=== PATIENT | female | born 1955 | race African-American/Black ===

== ENCOUNTER 2016-04-30 11:43 | Day surgery (SDC) | payer BC ==
[~2016-04-30] VITALS: Ht 185.4 cm; Wt 102.0 kg
[~2016-04-30 11:43] MED LIST: AMOXICILLIN 8751 TAB PO; COUMADIN 5MG5 MG/TAB PO; COUMADIN 6MG6 MG/TAB PO; FOLIC ACID0.8 MG PO; HCTZ 25MG TAB25 MG PO; LEVAQUIN 5500 MG/TA1 PO; LOPRESSOR 225 MG/TAB PO; LOVENOX 3030 MG/0.3 SQ; NEPHROCAP PO; NEURONTIN100 MG/CAP PO; NORCO 325 MG-51 TAB PO; PHENERGAN 25 TA25 MG PO; PREDNISONE20 MG PO; PROVENTIL0.09 MG/A1 IH; TYLENOL 500MG500 MG PO; VITAMIN D 1001000 IU PO; VTAMINC250TA PO
[2016-04-30] MEDS ORDERED: COUMADIN4 MG PO (12:37)
[2016-04-30] MEDS ORDERED: DOXYCYCLINE 10100 MG PO (12:39)
[2016-04-30 12:52] VITALS: BP 112/68; PULSE 84; TEMP 98.1
[2016-04-30 12:58] LABS: INR 2.4 (0.8-3.0); PROTHROMBIN TIME 27.3 SECONDS (9.7-12.8)
[2016-04-30 14:30] VITALS: BP 142/69; PULSE 88; TEMP 98.3
== END 2016-04-30 15:00 | disposition home or self-care (01) ==
LOC: SDCO 11:43
PROVIDERS: Internal Medicine Pulmonary Disease
DX: Z46.89 Encounter for fitting and adjustment of other specified devices (principal); J90 Pleural effusion, not elsewhere classified; R06.02 Shortness of breath; R53.1 Weakness; Z85.118 Personal history of other malignant neoplasm of bronchus and lung; Z85.841 Personal history of malignant neoplasm of brain; Z87.891 Personal history of nicotine dependence; Z92.3 Personal history of irradiation; Z92.29 Personal history of other drug therapy

== ENCOUNTER 2016-06-09 21:48 | Inpatient (IN) | payer BC ==
[~2016-06-09] VITALS: Ht 185.4 cm; Wt 101.6 kg
[~2016-06-09 21:48] MED LIST changes: +COUMADIN4 MG PO; +DOXYCYCLINE 10100 MG PO
[2016-06-10] VITALS (7 sets, daily range): BP systolic 92–130; BP diastolic 52–87; PULSE 107–120; TEMP 98–100.1
[2016-06-10 01:49] LABS: BASO # 0.1 (0.0-0.2); BASO % 0.4 % (0.0-2.0); EOS # 0.1 (0.0-0.7); EOS % 0.7 % (0-4.0); GRAN # 11.8 (1.4-6.5); GRAN % 84.4 % (42.2-75.2); LYMPH # 1.1 (1.2-3.4); LYMPH % 7.9 % (20.0-51.0); MEAN CELL VOLUME 94 fl (80.0-100.0); MEAN CORPUSCULAR HGB CONC 32 g/dl (33.0-37.0); MEAN PLATELET VOLUME 9.5 fl (7.4-10.4); MONO # 0.9 (0.1-0.6); MONO % 6.2 % (1.7-9.3); PLATELET COUNT 225 K/mm3 (130-400); RED BLOOD COUNT 3.83 M/mm3 (4.10-5.30); REDCELL DISTRIBUTION WIDTH-CV 15.2 % (11.5-14.5); WHITE BLOOD COUNT 13.9 K/mm3 (4.8-10.8)
[2016-06-10 01:50] LABS: HEMOGLOBIN 11.5 g/dl (12.5-16.0); MEAN CORPUSCULAR HEMOGLOBIN 30 pg (27.0-31.0)
[2016-06-10 01:56] LABS: ADJUSTED CALCIUM 9.5 mg/dL (8.4-10.2); ALBUMIN 3.8 gm/dL (3.5-5.0); CALCIUM 9.3 mg/dL (8.4-10.2); POTASSIUM 4.2 mmol/L (3.4-5.0); TOTAL PROTEIN 7.5 gm/dL (6.4-8.2)
[2016-06-10 02:02] LABS: CREATININE, serum 6.42 mg/dL (0.52-1.25)
[2016-06-10 02:51] LABS: INR 2.2 (0.8-3.0); PROTHROMBIN TIME 25.1 SECONDS (9.7-12.8)
[2016-06-11 03:14] VITALS: BP 107/79; PULSE 104; TEMP 98.5
[2016-06-11 07:35] LABS: BASO % 0.3 % (0.0-2.0); EOS # 0.3 (0.0-0.7); EOS % 2.7 % (0-4.0); GRAN # 7.9 (1.4-6.5); GRAN % 76.3 % (42.2-75.2); LYMPH # 1.1 (1.2-3.4); LYMPH % 10.7 % (20.0-51.0); MEAN CELL VOLUME 97 fl (80.0-100.0); MEAN CORPUSCULAR HGB CONC 31 g/dl (33.0-37.0); MEAN PLATELET VOLUME 9.9 fl (7.4-10.4); MONO % 9.5 % (1.7-9.3); PLATELET COUNT 161 K/mm3 (130-400); RED BLOOD COUNT 3.17 M/mm3 (4.10-5.30); REDCELL DISTRIBUTION WIDTH-CV 15.2 % (11.5-14.5); WHITE BLOOD COUNT 10.4 K/mm3 (4.8-10.8)
[2016-06-11 07:39] LABS: HEMATOCRIT 30.7 % (37.0-47.0); HEMOGLOBIN 9.4 g/dl (12.5-16.0); MEAN CORPUSCULAR HEMOGLOBIN 30 pg (27.0-31.0)
[2016-06-11 07:45] LABS: CALCIUM 8.7 mg/dL (8.4-10.2); POTASSIUM 4.5 mmol/L (3.4-5.0)
[2016-06-11 08:14] VITALS: BP 112/60; PULSE 111; TEMP 98
[2016-06-11 08:14] LABS: CREATININE, serum 5.27 mg/dL (0.52-1.25)
[2016-06-11 11:50] VITALS: BP 110/71; PULSE 106
[2016-06-11 15:32] VITALS: BP 109/83; PULSE 106; TEMP 98.7
[2016-06-11 21:12] VITALS: BP 114/66; PULSE 97; TEMP 98.4
[2016-06-11 22:48] VITALS: BP 118/63; PULSE 96; TEMP 97.3
[2016-06-12 04:07] VITALS: BP 116/71; PULSE 97; TEMP 98.1
[2016-06-12 07:41] LABS: BASO % 0.3 % (0.0-2.0); EOS # 0.3 (0.0-0.7); EOS % 3.9 % (0-4.0); GRAN # 4.9 (1.4-6.5); GRAN % 76.9 % (42.2-75.2); LYMPH # 0.8 (1.2-3.4); LYMPH % 12.4 % (20.0-51.0); MEAN CELL VOLUME 97 fl (80.0-100.0); MEAN CORPUSCULAR HGB CONC 31 g/dl (33.0-37.0); MEAN PLATELET VOLUME 10.2 fl (7.4-10.4); MONO # 0.4 (0.1-0.6); MONO % 6.2 % (1.7-9.3); PLATELET COUNT 162 K/mm3 (130-400); RED BLOOD COUNT 2.97 M/mm3 (4.10-5.30); REDCELL DISTRIBUTION WIDTH-CV 15.2 % (11.5-14.5); WHITE BLOOD COUNT 6.4 K/mm3 (4.8-10.8)
[2016-06-12 07:44] LABS: HEMATOCRIT 28.8 % (37.0-47.0); HEMOGLOBIN 8.8 g/dl (12.5-16.0); MEAN CORPUSCULAR HEMOGLOBIN 30 pg (27.0-31.0)
[2016-06-12 07:49] LABS: CALCIUM 8.8 mg/dL (8.4-10.2); POTASSIUM 3.9 mmol/L (3.4-5.0)
[2016-06-12 08:02] LABS: CREATININE, serum 6.02 mg/dL (0.52-1.25)
[2016-06-12 08:23] LABS: INR 2.2 (0.8-3.0); PROTHROMBIN TIME 25.5 SECONDS (9.7-12.8)
[2016-06-12 12:30] VITALS: BP 123/72; PULSE 98; TEMP 96.9
[2016-06-12 16:44] VITALS: BP 120/72; PULSE 89; TEMP 97
[2016-06-12 20:53] VITALS: BP 112/70; PULSE 101; TEMP 98.7
[2016-06-13] VITALS (7 sets, daily range): BP systolic 96–124; BP diastolic 56–89; PULSE 84–100; TEMP 97.8–98.7
[2016-06-13 06:59] LABS: ADD PATHOLOGY DIFF REVIEW NO
[2016-06-13 07:02] LABS: MEAN CELL VOLUME 97 fl (80.0-100.0); MEAN CORPUSCULAR HGB CONC 30 g/dl (33.0-37.0); PLATELET COUNT 179 K/mm3 (130-400); RED BLOOD COUNT 2.83 M/mm3 (4.10-5.30); REDCELL DISTRIBUTION WIDTH-CV 14.7 % (11.5-14.5); WHITE BLOOD COUNT 4.6 K/mm3 (4.8-10.8)
[2016-06-13 07:04] LABS: HEMATOCRIT 27.3 % (37.0-47.0); HEMOGLOBIN 8.3 g/dl (12.5-16.0); MEAN CORPUSCULAR HEMOGLOBIN 29 pg (27.0-31.0)
[2016-06-13 07:19] LABS: CALCIUM 8.4 mg/dL (8.4-10.2); MAGNESIUM 1.9 mg/dL (1.6-2.3); POTASSIUM 3.6 mmol/L (3.4-5.0)
[2016-06-13 08:42] LABS: CREATININE, serum 4.89 mg/dL (0.52-1.25)
[2016-06-13 10:55] LABS: BAND 9 % (0-10); EOSINOPHIL 4 % (0-4); NEUTROPHILS 65 % (42.0-75.2); TOTAL CELLS COUNTED 100
[2016-06-13 10:56] LABS: PLATELET ESTIMATE NORMAL (NORMAL)
[2016-06-14 03:50] VITALS: BP 106/47; PULSE 57; TEMP 98.5
[2016-06-14 07:39] LABS: INR 2.4 (0.8-3.0); PROTHROMBIN TIME 27.1 SECONDS (9.7-12.8)
[2016-06-14 11:51] VITALS: BP 99/60; PULSE 86; TEMP 97.4
[2016-06-14] MEDS ORDERED: OMNICEF 300MG300 MG PO (13:04)
[2016-06-14] MEDS ORDERED: PROAIR HFA0.09 MG/AC IH (13:06)
== END 2016-06-14 17:40 | disposition home health service (06) | DRG 193 ==
LOC: MEDICAL 21:48
PROVIDERS: Family Medicine; Internal Medicine; Nurse Practitioner Family; Surgery
PROC: 05JY3ZZ Inspection of Upper Vein, Percutaneous Approach (ICD-10-PCS; 2016-06-09)
PROC: 5A1D60Z (ICD-10-PCS; 2016-06-10)
PROC: 05HN33Z Insertion of Infusion Device into Left Internal Jugular Vein, Percutaneous Approach (ICD-10-PCS; principal; 2016-06-10 17:15)
DX: J18.9 Pneumonia, unspecified organism (principal); N18.6 End stage renal disease; I12.0 Hypertensive chronic kidney disease with stage 5 chronic kidney disease or end stage renal disease; J90 Pleural effusion, not elsewhere classified; F17.210 Nicotine dependence, cigarettes, uncomplicated; Z85.118 Personal history of other malignant neoplasm of bronchus and lung; Z85.841 Personal history of malignant neoplasm of brain; Z79.01 Long term (current) use of anticoagulants; Z86.711 Personal history of pulmonary embolism; Z99.2 Dependence on renal dialysis; G62.9 Polyneuropathy, unspecified; R11.2 Nausea with vomiting, unspecified
CPT/HCPCS: 99223-AI; 99232-AI; 99239; C1751; J0696; J1644

== ENCOUNTER → 2016-07-30 | Outpatient (CLI) | payer BC, MEDICARE ==
[~2016-07-30] MED LIST changes: +ATIVAN 2MG/ML2 MG/ML IV; +COMPAZINE 110 MG/TAB PO; +COMPAZINE25 MG/SUPP RC; +ENULOSE10 GM/151 PO; +ERYTHROCIN STE500 MG PO; +HALDOL 5MG/ML5 MG/ML IV; +IPRATROPIUM BROM3 M1 IH; +MORP4 IV; +NATURAL SENNA8.6 MG PO; +OMNICEF 300MG300 MG PO; +PROAIR HFA0.09 MG/AC IH; +PROCHLORPER PO; +ROBINUL1ML IV; +ROXANOL 20MG20 MG/ML PO; +RT ALBUTER2.5 MG/0.5 IH; +TESSALON P100 MG/CAP PO; +TRANSDERM-0.5 MG/21 TD; +VITAMIN D1000 IU PO; +ZOFRAN INJ4 MG/2 ML IV
== END ==
LOC: ZAIV 12:31 → COL.RAD 12:31
DX: Z53.9 Procedure and treatment not carried out, unspecified reason (principal)

== ENCOUNTER 2016-08-22 19:08 | Inpatient (IN) | payer MEDICARE, BC ==
[2016-08-22] VITALS (40 sets, daily range): BP systolic 126; BP diastolic 74; PULSE 85; TEMP 97.7; O2SAT 91–99
[~2016-08-22] VITALS: Ht 185.4 cm; Wt 86.6 kg
[~2016-08-22 19:08] MED LIST changes: -ATIVAN 2MG/ML2 MG/ML IV; -COMPAZINE 110 MG/TAB PO; -COMPAZINE25 MG/SUPP RC; -ENULOSE10 GM/151 PO; -ERYTHROCIN STE500 MG PO; -HALDOL 5MG/ML5 MG/ML IV; -IPRATROPIUM BROM3 M1 IH; -MORP4 IV; -NATURAL SENNA8.6 MG PO; -PROCHLORPER PO; -ROBINUL1ML IV; -ROXANOL 20MG20 MG/ML PO; -RT ALBUTER2.5 MG/0.5 IH; -TESSALON P100 MG/CAP PO; -TRANSDERM-0.5 MG/21 TD; -VITAMIN D1000 IU PO; -ZOFRAN INJ4 MG/2 ML IV
[2016-08-22] MEDS ORDERED: PROCHLORPER PO (20:02)
[2016-08-22] MEDS ORDERED: TESSALON P100 MG/CAP PO (20:04)
[2016-08-22] MEDS ORDERED: ERYTHROCIN STE500 MG PO (20:10)
[2016-08-22] MEDS ORDERED: COUMADIN4 MG PO (20:11)
[2016-08-22] MEDS ORDERED: COUMADIN 5MG5 MG/TAB PO (20:11)
[2016-08-22 20:58] LABS: BASO # 0.1 (0.0-0.2); BASO % 0.9 % (0.0-2.0); EOS # 0.2 (0.0-0.7); EOS % 2.4 % (0-4.0); GRAN # 5.3 (1.4-6.5); GRAN % 72.2 % (42.2-75.2); LYMPH # 0.9 (1.2-3.4); LYMPH % 12.2 % (20.0-51.0); MEAN CELL VOLUME 87 fl (80.0-100.0); MEAN CORPUSCULAR HGB CONC 31 g/dl (33.0-37.0); MEAN PLATELET VOLUME 10.1 fl (7.4-10.4); MONO # 0.9 (0.1-0.6); MONO % 11.8 % (1.7-9.3); PLATELET COUNT 271 K/mm3 (130-400); RED BLOOD COUNT 3.54 M/mm3 (4.10-5.30); REDCELL DISTRIBUTION WIDTH-CV 16.7 % (11.5-14.5); WHITE BLOOD COUNT 7.4 K/mm3 (4.8-10.8)
[2016-08-22 20:59] LABS: HEMATOCRIT 30.8 % (37.0-47.0); HEMOGLOBIN 9.6 g/dl (12.5-16.0); MEAN CORPUSCULAR HEMOGLOBIN 27 pg (27.0-31.0)
[2016-08-22 21:09] LABS: ADJUSTED CALCIUM 10.1 mg/dL (8.4-10.2); ALBUMIN 3.4 gm/dL (3.5-5.0); CALCIUM 9.6 mg/dL (8.4-10.2); POTASSIUM 3.7 mmol/L (3.4-5.0); TOTAL PROTEIN 6.8 gm/dL (6.4-8.2)
[2016-08-22 21:19] LABS: CREATININE, serum 5.4 mg/dL (0.52-1.25); TROPONIN-I 0.043 ng/mL (0.000-0.034)
[2016-08-22 21:29] LABS: PH 5 (5-8); SQUAMOUS EPITHELIAL 0-2 /hpf; URINE APPEARANCE Hazy; URINE BACTERIA Rare /hpf; URINE BILIRUBIN Negative (NEGATIVE); URINE BLOOD 3+ (NEGATIVE); URINE COLOR Yellow; URINE GLUCOSE Negative (NEGATIVE); URINE KETONE Negative (NEGATIVE); URINE UROBILINOGEN Negative (NEGATIVE); URINE WBC >50 /hpf
[2016-08-23] VITALS (647 sets, daily range): BP systolic 106–139; BP diastolic 62–88; PULSE 76–98; TEMP 97–98.8; O2SAT 69–100
[2016-08-23 05:29] LABS: BASO % 0.3 % (0.0-2.0); GRAN % 89.5 % (42.2-75.2); LYMPH # 0.6 (1.2-3.4); LYMPH % 7.3 % (20.0-51.0); MEAN CELL VOLUME 89 fl (80.0-100.0); MEAN CORPUSCULAR HGB CONC 30 g/dl (33.0-37.0); MEAN PLATELET VOLUME 9.8 fl (7.4-10.4); MONO # 0.2 (0.1-0.6); MONO % 2.5 % (1.7-9.3); PLATELET COUNT 291 K/mm3 (130-400); RED BLOOD COUNT 3.49 M/mm3 (4.10-5.30); REDCELL DISTRIBUTION WIDTH-CV 16.7 % (11.5-14.5); WHITE BLOOD COUNT 7.9 K/mm3 (4.8-10.8)
[2016-08-23 05:31] LABS: HEMATOCRIT 30.9 % (37.0-47.0); HEMOGLOBIN 9.4 g/dl (12.5-16.0); MEAN CORPUSCULAR HEMOGLOBIN 27 pg (27.0-31.0)
[2016-08-23 05:33] LABS: INR 3.3 (0.8-3.0); PROTHROMBIN TIME 38.4 SECONDS (9.7-12.8)
[2016-08-23 05:35] LABS: PARTIAL THROMBOPLASTIN TIME 40.2 SECONDS (26.0-37.0)
[2016-08-23 05:36] LABS: CALCIUM 9.5 mg/dL (8.4-10.2); POTASSIUM 4.2 mmol/L (3.4-5.0)
[2016-08-23 05:40] LABS: CREATININE, serum 6.07 mg/dL (0.52-1.25)
[2016-08-24 00:45] VITALS: BP 92/55; PULSE 82; TEMP 97.5
[2016-08-24 04:35] VITALS: BP 106/61; PULSE 97; TEMP 97.6
[2016-08-24 08:03] LABS: BASO # 0.1 (0.0-0.2); BASO % 0.6 % (0.0-2.0); EOS # 0.1 (0.0-0.7); EOS % 0.8 % (0-4.0); GRAN % 78.1 % (42.2-75.2); LYMPH # 1.1 (1.2-3.4); LYMPH % 11.7 % (20.0-51.0); MEAN CELL VOLUME 88 fl (80.0-100.0); MEAN CORPUSCULAR HGB CONC 31 g/dl (33.0-37.0); MEAN PLATELET VOLUME 10.5 fl (7.4-10.4); MONO # 0.8 (0.1-0.6); MONO % 8.5 % (1.7-9.3); PLATELET COUNT 285 K/mm3 (130-400); RED BLOOD COUNT 3.28 M/mm3 (4.10-5.30); REDCELL DISTRIBUTION WIDTH-CV 16.7 % (11.5-14.5)
[2016-08-24 08:06] VITALS: BP 112/65; PULSE 78; TEMP 98.8
[2016-08-24 08:09] LABS: CALCIUM 9.2 mg/dL (8.4-10.2); MEAN CORPUSCULAR HEMOGLOBIN 27 pg (27.0-31.0); POTASSIUM 3.5 mmol/L (3.4-5.0)
[2016-08-24 08:23] LABS: CREATININE, serum 4.65 mg/dL (0.52-1.25)
[2016-08-24 11:30] LABS: INR 4.5 (0.8-3.0)
[2016-08-24 11:44] VITALS: BP 118/69; PULSE 79; TEMP 98.4
[2016-08-24 13:03] LABS: PROTHROMBIN TIME 52.8 SECONDS (9.7-12.8)
[2016-08-24 15:54] VITALS: BP 92/73; PULSE 95; TEMP 97.8
[2016-08-24 20:54] VITALS: BP 92/61; PULSE 84; TEMP 97.8
[2016-08-25 05:11] VITALS: BP 92/62; PULSE 85; TEMP 98.6
[2016-08-25 07:32] LABS: BASO # 0.1 (0.0-0.2); BASO % 0.9 % (0.0-2.0); EOS # 0.2 (0.0-0.7); EOS % 3.7 % (0-4.0); GRAN # 4.4 (1.4-6.5); GRAN % 69.1 % (42.2-75.2); LYMPH % 15.2 % (20.0-51.0); MEAN CELL VOLUME 90 fl (80.0-100.0); MEAN CORPUSCULAR HGB CONC 31 g/dl (33.0-37.0); MEAN PLATELET VOLUME 10.1 fl (7.4-10.4); MONO # 0.7 (0.1-0.6); MONO % 10.6 % (1.7-9.3); PLATELET COUNT 276 K/mm3 (130-400); RED BLOOD COUNT 3.34 M/mm3 (4.10-5.30); REDCELL DISTRIBUTION WIDTH-CV 16.8 % (11.5-14.5); WHITE BLOOD COUNT 6.4 K/mm3 (4.8-10.8)
[2016-08-25 07:36] LABS: INR 3.7 (0.8-3.0); PROTHROMBIN TIME 42.2 SECONDS (9.7-12.8)
[2016-08-25 07:40] LABS: HEMATOCRIT 29.9 % (37.0-47.0); HEMOGLOBIN 9.2 g/dl (12.5-16.0); MEAN CORPUSCULAR HEMOGLOBIN 28 pg (27.0-31.0)
[2016-08-25 07:41] LABS: POTASSIUM 3.5 mmol/L (3.4-5.0)
[2016-08-25 07:56] LABS: CREATININE, serum 5.7 mg/dL (0.52-1.25)
[2016-08-25 08:50] VITALS: BP 90/61; PULSE 88; TEMP 97.4
[2016-08-25 12:40] VITALS: BP 106/74; PULSE 88; TEMP 97.7
[2016-08-25 15:41] VITALS: BP 96/62; PULSE 92; TEMP 98.5
[2016-08-25 20:30] VITALS: BP 128/83; PULSE 88; TEMP 98.1
[2016-08-26] VITALS (7 sets, daily range): BP systolic 97–123; BP diastolic 55–76; PULSE 77–93; TEMP 97.6–98.7
[2016-08-26 06:26] LABS: INR 2.6 (0.8-3.0); PROTHROMBIN TIME 29.4 SECONDS (9.7-12.8)
[2016-08-27 03:09] VITALS: BP 102/64; PULSE 88; TEMP 98.3
[2016-08-27 08:31] VITALS: BP 118/77; PULSE 90; TEMP 97.8
[2016-08-27 11:30] VITALS: BP 113/68; PULSE 79; TEMP 98.2
[2016-08-27 13:03] VITALS: BP 113/68; PULSE 79; TEMP 98.2
== END 2016-08-27 14:15 | DRG 180 ==
LOC: COL.ER 19:08 → IMCU 21:41 → MEDICAL 08-23 22:31
PROVIDERS: Emergency Medicine; Internal Medicine
PROC: 5A1D60Z (ICD-10-PCS; principal; 2016-08-23)
DX: C34.01 Malignant neoplasm of right main bronchus (principal); N18.6 End stage renal disease; J98.11 Atelectasis; N39.0 Urinary tract infection, site not specified; I12.0 Hypertensive chronic kidney disease with stage 5 chronic kidney disease or end stage renal disease; C79.31 Secondary malignant neoplasm of brain; Z99.2 Dependence on renal dialysis; Z87.891 Personal history of nicotine dependence; Z86.711 Personal history of pulmonary embolism; Z79.01 Long term (current) use of anticoagulants
CPT/HCPCS: C1751; J0692; J1644; J1956; J3370; J7050; J7512

== ENCOUNTER → 2016-09-11 | Outpatient (REF) ==
[~2016-09-11] MED LIST changes: +ATIVAN 2MG/ML2 MG/ML IV; +COMPAZINE 110 MG/TAB PO; +COMPAZINE25 MG/SUPP RC; +ENULOSE10 GM/151 PO; +ERYTHROCIN STE500 MG PO; +HALDOL 5MG/ML5 MG/ML IV; +IPRATROPIUM BROM3 M1 IH; +MORP4 IV; +NATURAL SENNA8.6 MG PO; +PROCHLORPER PO; +ROBINUL1ML IV; +ROXANOL 20MG20 MG/ML PO; +RT ALBUTER2.5 MG/0.5 IH; +TESSALON P100 MG/CAP PO; +TRANSDERM-0.5 MG/21 TD; +VITAMIN D1000 IU PO; +ZOFRAN INJ4 MG/2 ML IV
== END ==
LOC: ZAIV 06:30
DX: Z01.89 Encounter for other specified special examinations (principal)

== ENCOUNTER 2016-09-29 12:49 | Inpatient (IN) | payer MEDICARE, BC ==
[~2016-09-29] VITALS: Ht 185.4 cm; Wt 94.4 kg
[~2016-09-29 12:49] MED LIST changes: -ATIVAN 2MG/ML2 MG/ML IV; -COMPAZINE 110 MG/TAB PO; -COMPAZINE25 MG/SUPP RC; -ENULOSE10 GM/151 PO; -HALDOL 5MG/ML5 MG/ML IV; -IPRATROPIUM BROM3 M1 IH; -MORP4 IV; -NATURAL SENNA8.6 MG PO; -ROBINUL1ML IV; -ROXANOL 20MG20 MG/ML PO; -RT ALBUTER2.5 MG/0.5 IH; -TRANSDERM-0.5 MG/21 TD; -VITAMIN D1000 IU PO; -ZOFRAN INJ4 MG/2 ML IV
[2016-09-29 13:47] LABS: PARTIAL THROMBOPLASTIN TIME 59.6 SECONDS (26.0-37.0)
[2016-09-29 13:49] LABS: PROTHROMBIN TIME 58.1 SECONDS (9.7-12.8)
[2016-09-29 13:57] LABS: ARTERIAL BLD GAS O2 SATURATION 91.8 % (92-100); ARTERIAL BLD GAS TCO2 CT 32.3; ARTERIAL BLOOD GAS BASE EXCESS 5.7 (-2-2); ARTERIAL BLOOD GAS HCO3 30.9 meq/L (22-26); ARTERIAL BLOOD GAS PO2 67.3 mmHg (80-100); ARTERIAL BLOOD GAS pH 7.43 (7.35-7.45); ATS? YES; OXYHEMOGLOBIN 91.2 %
[2016-09-29 14:05] LABS: ADJUSTED CALCIUM 9.7 mg/dL (8.4-10.2); ALBUMIN 3.4 gm/dL (3.5-5.0); BILIRUBIN,TOTAL 0.8 mg/dL (0.0-1.0); CALCIUM 9.2 mg/dL (8.4-10.2); MAGNESIUM 1.9 mg/dL (1.6-2.3); POTASSIUM 3.7 mmol/L (3.4-5.0); TOTAL PROTEIN 6.8 gm/dL (6.4-8.2)
[2016-09-29 14:06] LABS: CREATININE, serum 7.11 mg/dL (0.52-1.25)
[2016-09-29 14:31] LABS: BASO # 0.1 (0.0-0.2); BASO % 1.1 % (0.0-2.0); EOS # 0.2 (0.0-0.7); EOS % 4.3 % (0-4.0); GRAN # 3.9 (1.4-6.5); GRAN % 69.1 % (42.2-75.2); LYMPH # 0.7 (1.2-3.4); LYMPH % 12.5 % (20.0-51.0); MEAN CELL VOLUME 91 fl (80.0-100.0); MEAN CORPUSCULAR HGB CONC 30 g/dl (33.0-37.0); MEAN PLATELET VOLUME 9.5 fl (7.4-10.4); MONO # 0.7 (0.1-0.6); MONO % 12.5 % (1.7-9.3); PLATELET COUNT 255 K/mm3 (130-400); RED BLOOD COUNT 3.71 M/mm3 (4.10-5.30); REDCELL DISTRIBUTION WIDTH-CV 16.8 % (11.5-14.5); WHITE BLOOD COUNT 5.6 K/mm3 (4.8-10.8)
[2016-09-29] MEDS ORDERED: IPRATROPIUM BROM3 M1 IH (14:33)
[2016-09-29 14:36] LABS: HEMATOCRIT 33.7 % (37.0-47.0); MEAN CORPUSCULAR HEMOGLOBIN 27 pg (27.0-31.0)
[2016-09-29 18:59] VITALS: BP 118/68; PULSE 103; TEMP 97
[2016-09-29] MEDS ORDERED: VITAMIN D1000 IU PO (19:15)
[2016-09-29] MEDS ORDERED: PROAIR HFA0.09 MG/AC IH (19:16)
[2016-09-29] MEDS ORDERED: COMPAZINE 110 MG/TAB PO (19:16)
[2016-09-29 19:31] VITALS: BP 111/68; PULSE 104; TEMP 98.3
[2016-09-29 22:47] VITALS: BP 136/86; PULSE 104; TEMP 97.6
[2016-09-30 04:09] VITALS: BP 122/75; PULSE 80; TEMP 98.4
[2016-09-30 07:01] LABS: INR 4.4 (0.8-3.0)
[2016-09-30 07:04] LABS: HEMATOCRIT 31.5 % (37.0-47.0); HEMOGLOBIN 9.5 g/dl (12.5-16.0); MEAN CELL VOLUME 90 fl (80.0-100.0); MEAN CORPUSCULAR HEMOGLOBIN 27 pg (27.0-31.0); MEAN CORPUSCULAR HGB CONC 30 g/dl (33.0-37.0); MEAN PLATELET VOLUME 9.8 fl (7.4-10.4); PLATELET COUNT 254 K/mm3 (130-400); RED BLOOD COUNT 3.49 M/mm3 (4.10-5.30); REDCELL DISTRIBUTION WIDTH-CV 16.8 % (11.5-14.5); WHITE BLOOD COUNT 5.9 K/mm3 (4.8-10.8)
[2016-09-30 07:13] LABS: PROTHROMBIN TIME 50.9 SECONDS (9.7-12.8)
[2016-09-30 07:15] LABS: CALCIUM 8.7 mg/dL (8.4-10.2); POTASSIUM 3.6 mmol/L (3.4-5.0)
[2016-09-30 07:24] LABS: CREATININE, serum 5.6 mg/dL (0.52-1.25)
[2016-09-30 08:04] VITALS: BP 108/69; PULSE 107; TEMP 97.8
[2016-09-30 10:06] LABS: BASO # 0.1 (0.0-0.2); EOS # 0.2 (0.0-0.7); GRAN # 3.9 (1.4-6.5); GRAN % 67.7 % (42.2-75.2); LYMPH # 0.9 (1.2-3.4); LYMPH % 14.7 % (20.0-51.0); MONO # 0.7 (0.1-0.6); MONO % 12.3 % (1.7-9.3)
[2016-09-30 10:27] LABS: PARTIAL THROMBOPLASTIN TIME 56.5 SECONDS (26.0-37.0)
[2016-09-30 16:23] VITALS: BP 117/55; PULSE 103; TEMP 97.6
[2016-09-30 20:27] VITALS: BP 111/95; PULSE 101; TEMP 98.6
[2016-09-30 23:17] VITALS: BP 124/65; PULSE 103; TEMP 98.2
[2016-10-01 03:41] VITALS: BP 152/93; PULSE 106; TEMP 98.9
[2016-10-01 07:27] VITALS: BP 132/80; PULSE 106; TEMP 97.7
[2016-10-01 09:47] LABS: MEAN CELL VOLUME 90 fl (80.0-100.0); MEAN CORPUSCULAR HGB CONC 30 g/dl (33.0-37.0); MEAN PLATELET VOLUME 9.5 fl (7.4-10.4); PLATELET COUNT 259 K/mm3 (130-400); RED BLOOD COUNT 3.54 M/mm3 (4.10-5.30); REDCELL DISTRIBUTION WIDTH-CV 16.9 % (11.5-14.5); WHITE BLOOD COUNT 5.6 K/mm3 (4.8-10.8)
[2016-10-01 09:50] LABS: HEMATOCRIT 31.9 % (37.0-47.0); HEMOGLOBIN 9.5 g/dl (12.5-16.0); MEAN CORPUSCULAR HEMOGLOBIN 27 pg (27.0-31.0)
[2016-10-01 09:51] LABS: INR 1.9 (0.8-3.0); PROTHROMBIN TIME 21.1 SECONDS (9.7-12.8)
[2016-10-01 10:14] LABS: CALCIUM 8.8 mg/dL (8.4-10.2)
[2016-10-01 10:19] LABS: CREATININE, serum 7.23 mg/dL (0.52-1.25)
[2016-10-01 11:14] VITALS: BP 109/72; PULSE 101; TEMP 98
[2016-10-01 15:57] VITALS: BP 123/83; PULSE 80
[2016-10-01 22:22] VITALS: BP 102/57; PULSE 104; TEMP 98.7
[2016-10-02 03:04] VITALS: BP 113/94; BP 123/64; PULSE 87; TEMP 98.6
[2016-10-02 08:37] VITALS: BP 100/61; PULSE 104; TEMP 98.2
[2016-10-02 09:02] LABS: HEMOGLOBIN 9.5 g/dl (12.5-16.0); MEAN CELL VOLUME 91 fl (80.0-100.0); MEAN CORPUSCULAR HEMOGLOBIN 27 pg (27.0-31.0); MEAN CORPUSCULAR HGB CONC 30 g/dl (33.0-37.0); MEAN PLATELET VOLUME 9.9 fl (7.4-10.4); PLATELET COUNT 213 K/mm3 (130-400); REDCELL DISTRIBUTION WIDTH-CV 17.1 % (11.5-14.5)
[2016-10-02 09:03] LABS: INR 1.6 (0.8-3.0); PROTHROMBIN TIME 18.5 SECONDS (9.7-12.8)
[2016-10-02 09:51] LABS: CALCIUM 8.6 mg/dL (8.4-10.2); POTASSIUM 4.2 mmol/L (3.4-5.0)
[2016-10-02 09:55] LABS: CREATININE, serum 5.63 mg/dL (0.52-1.25)
[2016-10-02 12:44] LABS: PLEURAL FLUID - PMN 10.3 % (0-25)
[2016-10-02 12:54] LABS: GLUCOSE,PLEURAL FLUID 69 mg/dL
[2016-10-02 12:58] VITALS: BP 103/48; PULSE 101; TEMP 98.4
[2016-10-02 14:13] LABS: PLEURAL FLUID LEFT SIDE; PLEURAL FLUID COLOR RED
[2016-10-02 14:14] LABS: PLEURAL FLUID APPEARANCE TURBID
[2016-10-02 15:28] LABS: HEMATOCRIT 30.6 % (37.0-47.0)
[2016-10-02 15:57] VITALS: PULSE 104; TEMP 98.8
[2016-10-02 19:28] VITALS: BP 127/99; PULSE 104; TEMP 98.6
[2016-10-02 23:04] VITALS: BP 93/52; PULSE 88; TEMP 97.1
[2016-10-03 02:50] VITALS: BP 111/50; PULSE 95; TEMP 97.6
[2016-10-03 07:12] LABS: MEAN CELL VOLUME 89 fl (80.0-100.0); MEAN CORPUSCULAR HGB CONC 30 g/dl (33.0-37.0); MEAN PLATELET VOLUME 9.7 fl (7.4-10.4); PLATELET COUNT 214 K/mm3 (130-400); REDCELL DISTRIBUTION WIDTH-CV 17.3 % (11.5-14.5); WHITE BLOOD COUNT 4.1 K/mm3 (4.8-10.8)
[2016-10-03 07:20] LABS: INR 1.6 (0.8-3.0); PROTHROMBIN TIME 17.9 SECONDS (9.7-12.8)
[2016-10-03 07:24] LABS: HEMATOCRIT 30.4 % (37.0-47.0); HEMOGLOBIN 9.2 g/dl (12.5-16.0); MEAN CORPUSCULAR HEMOGLOBIN 27 pg (27.0-31.0)
[2016-10-03 07:33] LABS: CALCIUM 8.5 mg/dL (8.4-10.2); POTASSIUM 3.7 mmol/L (3.4-5.0)
[2016-10-03 07:37] LABS: CREATININE, serum 7.48 mg/dL (0.52-1.25)
[2016-10-03 11:42] VITALS: BP 95/61; PULSE 100; TEMP 96.9
[2016-10-03 15:38] VITALS: BP 94/69; PULSE 101; TEMP 97.8
[2016-10-03 19:37] VITALS: BP 94/54; PULSE 104; TEMP 97.8
[2016-10-03 23:52] VITALS: BP 88/46; PULSE 107; TEMP 98.4
[2016-10-04 03:52] VITALS: BP 96/53; PULSE 104; TEMP 98.1
[2016-10-04 07:45] LABS: MEAN CELL VOLUME 91 fl (80.0-100.0); MEAN CORPUSCULAR HGB CONC 29 g/dl (33.0-37.0); MEAN PLATELET VOLUME 9.7 fl (7.4-10.4); PLATELET COUNT 184 K/mm3 (130-400); RED BLOOD COUNT 3.29 M/mm3 (4.10-5.30); REDCELL DISTRIBUTION WIDTH-CV 17.2 % (11.5-14.5); WHITE BLOOD COUNT 4.5 K/mm3 (4.8-10.8)
[2016-10-04 07:49] VITALS: BP 101/75; PULSE 106; TEMP 97.3
[2016-10-04 07:49] LABS: HEMATOCRIT 29.9 % (37.0-47.0); HEMOGLOBIN 8.8 g/dl (12.5-16.0); MEAN CORPUSCULAR HEMOGLOBIN 27 pg (27.0-31.0)
[2016-10-04 07:57] LABS: INR 1.6 (0.8-3.0); PROTHROMBIN TIME 17.6 SECONDS (9.7-12.8)
[2016-10-04 08:00] LABS: CALCIUM 8.5 mg/dL (8.4-10.2); POTASSIUM 3.7 mmol/L (3.4-5.0)
[2016-10-04 08:05] LABS: CREATININE, serum 5.72 mg/dL (0.52-1.25)
[2016-10-04 16:30] VITALS: BP 113/45; PULSE 71; TEMP 98.4
[2016-10-04 20:29] VITALS: BP 104/47; PULSE 85; TEMP 97.8
[2016-10-05] VITALS (7 sets, daily range): BP systolic 84–103; BP diastolic 48–59; PULSE 84–105; TEMP 97.8–99.1
[2016-10-05 08:05] LABS: MEAN CELL VOLUME 90 fl (80.0-100.0); MEAN CORPUSCULAR HGB CONC 30 g/dl (33.0-37.0); PLATELET COUNT 170 K/mm3 (130-400); RED BLOOD COUNT 3.43 M/mm3 (4.10-5.30); REDCELL DISTRIBUTION WIDTH-CV 17.5 % (11.5-14.5); WHITE BLOOD COUNT 4.7 K/mm3 (4.8-10.8)
[2016-10-05 08:09] LABS: INR 1.5 (0.8-3.0); PROTHROMBIN TIME 16.4 SECONDS (9.7-12.8)
[2016-10-05 08:12] LABS: HEMATOCRIT 30.8 % (37.0-47.0); HEMOGLOBIN 9.2 g/dl (12.5-16.0); MEAN CORPUSCULAR HEMOGLOBIN 27 pg (27.0-31.0)
[2016-10-05 08:12] LABS: CALCIUM 8.5 mg/dL (8.4-10.2); POTASSIUM 3.8 mmol/L (3.4-5.0)
[2016-10-05 08:31] LABS: CREATININE, serum 4.73 mg/dL (0.52-1.25)
[2016-10-06 01:25] VITALS: BP 97/52; PULSE 102; TEMP 97.7
[2016-10-06 05:15] VITALS: BP 98/60; PULSE 101; TEMP 97.9
[2016-10-06 07:59] LABS: INR 1.5 (0.8-3.0); PROTHROMBIN TIME 17.2 SECONDS (9.7-12.8)
[2016-10-06 08:03] VITALS: BP 97/42; PULSE 95; TEMP 97.7
[2016-10-06 08:03] LABS: MEAN CELL VOLUME 92 fl (80.0-100.0); MEAN CORPUSCULAR HGB CONC 29 g/dl (33.0-37.0); MEAN PLATELET VOLUME 9.7 fl (7.4-10.4); PLATELET COUNT 176 K/mm3 (130-400); RED BLOOD COUNT 3.28 M/mm3 (4.10-5.30); REDCELL DISTRIBUTION WIDTH-CV 17.2 % (11.5-14.5); WHITE BLOOD COUNT 3.7 K/mm3 (4.8-10.8)
[2016-10-06 08:09] LABS: CALCIUM 8.6 mg/dL (8.4-10.2); HEMATOCRIT 30.1 % (37.0-47.0); HEMOGLOBIN 8.8 g/dl (12.5-16.0); MEAN CORPUSCULAR HEMOGLOBIN 27 pg (27.0-31.0); POTASSIUM 3.9 mmol/L (3.4-5.0)
[2016-10-06 08:28] LABS: CREATININE, serum 6.63 mg/dL (0.52-1.25)
[2016-10-06 12:55] VITALS: BP 107/49; PULSE 59; TEMP 98.3
[2016-10-06 15:42] VITALS: BP 96/57; PULSE 99; TEMP 97.8
[2016-10-06 19:43] VITALS: BP 86/52; PULSE 99; TEMP 97.3
[2016-10-07] VITALS (7 sets, daily range): BP systolic 73–121; BP diastolic 46–72; PULSE 73–102; TEMP 97–98.8
[2016-10-07 07:55] LABS: BASO # 0.1 (0.0-0.2); BASO % 1.3 % (0.0-2.0); EOS # 0.2 (0.0-0.7); EOS % 6.1 % (0-4.0); GRAN # 2.3 (1.4-6.5); GRAN % 56.7 % (42.2-75.2); LYMPH # 0.8 (1.2-3.4); LYMPH % 21.2 % (20.0-51.0); MEAN CELL VOLUME 91 fl (80.0-100.0); MEAN CORPUSCULAR HGB CONC 29 g/dl (33.0-37.0); MEAN PLATELET VOLUME 9.5 fl (7.4-10.4); MONO # 0.6 (0.1-0.6); MONO % 14.4 % (1.7-9.3); PLATELET COUNT 193 K/mm3 (130-400); RED BLOOD COUNT 3.26 M/mm3 (4.10-5.30); REDCELL DISTRIBUTION WIDTH-CV 17.2 % (11.5-14.5)
[2016-10-07 07:59] LABS: HEMATOCRIT 29.7 % (37.0-47.0); HEMOGLOBIN 8.7 g/dl (12.5-16.0); MEAN CORPUSCULAR HEMOGLOBIN 27 pg (27.0-31.0)
[2016-10-07 08:01] LABS: INR 1.5 (0.8-3.0); PROTHROMBIN TIME 16.6 SECONDS (9.7-12.8)
[2016-10-07 18:49] LABS: POTASSIUM 3.9 mmol/L (3.4-5.0)
[2016-10-08 00:39] VITALS: BP 101/78; PULSE 97; TEMP 98.1
[2016-10-08 04:16] VITALS: BP 107/45; PULSE 98; TEMP 97.7
[2016-10-08 07:29] VITALS: BP 89/49; PULSE 100; TEMP 98
[2016-10-08 11:11] VITALS: BP 91/56; PULSE 102; TEMP 98.4
[2016-10-08] MEDS ORDERED: ROXANOL 20MG20 MG/ML PO (11:35)
[2016-10-08] MEDS ORDERED: MORP4 IV (11:35)
[2016-10-08] MEDS ORDERED: RT ALBUTER2.5 MG/0.5 IH (11:36)
[2016-10-08] MEDS ORDERED: TRANSDERM-0.5 MG/21 TD (11:36)
[2016-10-08] MEDS ORDERED: ROBINUL1ML IV (11:37)
[2016-10-08] MEDS ORDERED: ATIVAN 2MG/ML2 MG/ML IV (11:39)
[2016-10-08] MEDS ORDERED: HALDOL 5MG/ML5 MG/ML IV (11:40)
[2016-10-08] MEDS ORDERED: ZOFRAN INJ4 MG/2 ML IV (11:41)
[2016-10-08] MEDS ORDERED: COMPAZINE25 MG/SUPP RC (11:42)
[2016-10-08] MEDS ORDERED: NATURAL SENNA8.6 MG PO (11:43)
[2016-10-08] MEDS ORDERED: ENULOSE10 GM/151 PO (11:44)
[2016-10-08 12:16] VITALS: BP 91/56; PULSE 102; TEMP 98.4
== END 2016-10-08 14:36 | disposition hospice, inpatient (51) | DRG 180 ==
LOC: COL.ER 12:49 → MEDICAL 15:00
PROVIDERS: Emergency Medicine; Internal Medicine; Internal Medicine Nephrology; Internal Medicine Pulmonary Disease
PROC: 5A1D60Z (ICD-10-PCS; 2016-09-29)
PROC: 0W9B3ZX Drainage of Left Pleural Cavity, Percutaneous Approach, Diagnostic (ICD-10-PCS; principal; 2016-10-02 09:00)
PROC: 0W9B30Z Drainage of Left Pleural Cavity with Drainage Device, Percutaneous Approach (ICD-10-PCS; 2016-10-07)
DX: C34.91 Malignant neoplasm of unspecified part of right bronchus or lung (principal); N18.6 End stage renal disease; J91.0 Malignant pleural effusion; C79.31 Secondary malignant neoplasm of brain; Z51.5 Encounter for palliative care; E87.70 Fluid overload, unspecified; D63.1 Anemia in chronic kidney disease; G62.9 Polyneuropathy, unspecified; J44.9 Chronic obstructive pulmonary disease, unspecified; Z86.711 Personal history of pulmonary embolism; Z79.01 Long term (current) use of anticoagulants; Z87.891 Personal history of nicotine dependence; Z99.2 Dependence on renal dialysis
CPT/HCPCS: A7048; C1729; C1751; C1894; J1644; J1650; J2704; J7030; Q9967